=== PATIENT | female | born 1960 | race Caucasian/White ===

== ENCOUNTER 2018-11-27 00:45 | Outpatient (CLI) | payer OTHER ==
[2018-11-27 13:41] LABS: Hemoglobin 13.9 g/dL (12.0-16.0); Mean Corpuscular HGB CONC 34.5 g/dL (32.0-36.0); Mean Corpuscular Hemoglobin 31.5 pg (27.0-31.0); Mean Corpuscular Volume 91.3 fL (78.0-98.0); Platelet Count 264 thou/uL (130-400); RBC Distribution Width 11.6 % (11.5-14.5); White Blood Cell (WBC) Count 8.7 thou/uL (4.8-10.8)
[2018-11-27 14:00] LABS: Anion Gap 15 mmol/L (10-20); BUN (Urea Nitrogen) 17 mg/dL (9.8-20.1); Calc. Creatinine Clearance 0 mL/min (70-130); Calcium 9.2 mg/dL (7.8-10.44); Carbon Dioxide 28 mmol/L (22-29); Chloride 101 mmol/L (98-107); Estimated GFR-MDRD 45; Glucose 127 mg/dL (70-105); Potassium 3.1 mmol/L (3.5-5.1); Sodium 141 mmol/L (136-145)
--- NOTE | 2018-11-29 21:16 | EKG ---
Test Reason : Blood Pressure : / mmHG Vent. Rate : 089 BPM Atrial Rate : 089 BPM P-R Int : 186 ms QRS Dur : 084 ms QT Int : 384 ms P-R-T Axes : 052 007 040 degrees QTc Int : 467 ms Normal sinus rhythm Cannot rule out Anteroseptal infarct , age undetermined Abnormal ECG No previous ECGs available Confirmed by Jitendra BERRIOS ([id number]) on 11/29/2018 9:16:11 PM Referred By: EDUARDO Confirmed By:Jitendra BERRIOS
== END 2018-11-27 00:46 | disposition home or self-care (01) ==
LOC: LABBT 00:45
PROVIDERS: ATTEND Neurological Surgery
DX: Z01.818 Encounter for other preprocedural examination (principal); M54.12 Radiculopathy, cervical region
CPT/HCPCS: 80048; 85027; 93005; 93010

== ENCOUNTER 2018-12-02 05:25 | Day surgery (SDC) | payer OTHER ==
[2018-11-27 11:45] VITALS: BMI 31.0
[2018-12-02] MEDS ORDERED: Thrombin 5000 UNITS/5 ML VIAL ONE (06:35)
[2018-12-02] MEDS ORDERED: Sodium Chloride 0.9% 10 ML ONE (06:35)
[2018-12-02] MEDS ORDERED: Fentanyl 250 MCG/5 ML VIAL ONE (07:03)
[2018-12-02] MEDS ORDERED: HYDROmorphone 2 MG/ML VIAL ONE ×2 (07:34→10:53)
[2018-12-02] MEDS ORDERED: Ketamine 50 MG/ML (10ML VIAL) ONE (07:34)
[2018-12-02] MEDS ORDERED: Midazolam HCl 2 mg/2 ml Vial ONE (07:58)
[2018-12-02] MEDS ORDERED: Morphine 4 MG/ML VIAL SLOW IVP PRN (09:40)
[2018-12-02] MEDS ORDERED: Sodium Chloride 0.9% 1,000 ML IV SCH (09:40)
[2018-12-02] MEDS ORDERED: Mag-Al 1200 mg/1200 mg/30 ML UDCUP PO PRN (09:40)
[2018-12-02] MEDS ORDERED: diphenhydrAMINE 25 MG CAP PO PRN (09:40)
[2018-12-02] MEDS ORDERED: diphenhydrAMINE 50 MG/ML VIAL IVP PRN (09:40)
[2018-12-02] MEDS ORDERED: Milk Of Magnesia 30 ML UDCUP PO PRN (09:40)
[2018-12-02] MEDS ORDERED: Promethazine HCl 12.5 MG SUPP PR PRN (09:40)
[2018-12-02] MEDS ORDERED: traMADol HCl 50 MG TAB PO PRN ×2 (09:40)
[2018-12-02] MEDS ORDERED: Ondansetron PF 4 MG/2 ML Vial IVP PRN (09:40)
[2018-12-02] MEDS ORDERED: tiZANidine HCl 4 MG TAB PO PRN (09:40)
[2018-12-02] MEDS ORDERED: HYDROcodone/Acetaminophen 10/325 mg Tablet PO PRN ×2 (09:40)
[2018-12-02] MEDS ORDERED: Promethazine 25 MG TAB PO PRN (09:40)
[2018-12-02] MEDS ORDERED: Promethazine HCl 25 MG/ML VIAL IM PRN (09:40)
[2018-12-02] MEDS ORDERED: Fentanyl 100 MCG/2 ML VIAL ONE ×3 (09:49→10:36)
[2018-12-02] MEDS ORDERED: Morphine 2 MG/ML SYRINGE SLOW IVP PRN (10:00)
[2018-12-02] MEDS ORDERED: Promethazine HCl 25 MG/ML VIAL IM/IV PRN (10:12)
[2018-12-02] MEDS ORDERED: Non-Formulary Medication 1 EACH PO PRN (10:12)
[2018-12-02] MEDS ORDERED: HYDROmorphone 2 MG/ML VIAL SLOW IVP PRN (10:12)
[2018-12-02] MEDS ORDERED: Ondansetron HCl/PF 4 MG/2 ML Vial IVP PRN (10:12)
[2018-12-02] MEDS ORDERED: Rocuronium Bromide 10 MG/ML (10ML VIAL) ONE (12:08)
[2018-12-02] MEDS ORDERED: Dexamethasone 20 MG/5 ML VIAL ONE (12:08)
[2018-12-02] MEDS ORDERED: Glycopyrrolate 0.2 MG/ML 5 ML SYRINGE ONE (12:08)
[2018-12-02] MEDS ORDERED: Lidocaine 1% PF 5 ML VIAL ONE (12:08)
[2018-12-02] MEDS ORDERED: Ondansetron PF 4 MG/2 ML Vial ONE (12:08)
[2018-12-02] MEDS ORDERED: PROPOFOL 200 MG/20 ML VIAL ONE (12:08)
[2018-12-02] MEDS ORDERED: Phenylephrine HCL 10 MG/ML VIAL ONE (12:08)
[2018-12-02] MEDS ORDERED: diphenhydrAMINE 25 MG CAP ONE (12:13)
[2018-12-02] MEDS ORDERED: HYDROcodone/Acetaminophen 10/325 mg Tablet ONE (12:47)
[2018-12-02] MEDS ORDERED: tiZANidine HCl 4 MG TAB ONE (12:53)
--- NOTE | 2018-12-02 13:18 | OP ---
DATE OF PROCEDURE: 12/02/2018 HEARING SCREEN COORDINATOR: Rneé Pool PA-C PROCEDURES PERFORMED: Anterior cervical diskectomy C5-C6 and C6-C7, interbody arthrodesis, intervertebral biomechanical device, local morselized autograft, demineralized bone matrix, anterior titanium instrumentation C5-C6 and C6-C7. DESCRIPTION OF PROCEDURE: The patient was brought to the operating room and intubated. She was positioned supine with head in modest extension on a gel-filled donut. Incision was made in the right precervical area and dissected medial to the sternocleidomastoid muscle, identified the anterior cervical spinal, and the level was confirmed by x-ray. We debrided the anterior osteophytes, placed distraction across the disk spaces, and completely decompressed the C5-C6 and C6-C7 disks. The bony endplates were then decorticated for the purpose of arthrodesis and appropriately sized intervertebral biomechanical PEEK device was brought into the field and filled with demineralized bone matrix, local morselized autograft, and tapped into place securely at C5-C6 and C6-C7. Next, an anterior plate was brought into the field and secured to C5, C6, and C7 using two 14-mm screws at each level. The wound was then extensively irrigated and MAC hemostasis was secured. The wound was closed in anatomic layers. Job ID: [id number]
== END 2018-12-02 13:50 | disposition home or self-care (01) ==
LOC: SDC 05:25
PROVIDERS: ATTEND Neurological Surgery
PROC: 0RG2070 Fusion of 2 or more Cervical Vertebral Joints with Autologous Tissue Substitute, Anterior Approach, Anterior Column, Open Approach (ICD-10-PCS; principal; 2018-12-02)
PROC: 0RG20A0 Fusion of 2 or more Cervical Vertebral Joints with Interbody Fusion Device, Anterior Approach, Anterior Column, Open Approach (ICD-10-PCS; principal; 2018-12-02)
DX: M47.22 Other spondylosis with radiculopathy, cervical region (principal); I10 Essential (primary) hypertension; K21.9 Gastro-esophageal reflux disease without esophagitis; Z91.041 Radiographic dye allergy status; Z91.040 Latex allergy status; Z91.048 Other nonmedicinal substance allergy status; Z79.1 Long term (current) use of non-steroidal anti-inflammatories (NSAID); Z79.899 Other long term (current) drug therapy
CPT/HCPCS: 76000; C1713; C1776; J0690; J1100; J1170; J2001; J2250; J2370; J2405; J2704; J3010; J3490; Q0163

== ENCOUNTER 2018-12-17 10:34 | Outpatient (CLI) | payer OTHER ==
--- NOTE | 2018-12-17 11:55 | RAD ---
Radiograph cervical spine 4 views: HISTORY: 58-year-old female with cervical radiculopathy COMPARISON: None available FINDINGS: There is mild kyphosis centered at lower C-spine. Anterior metallic plate and screws at C3 5, C6, and C7. Tiny metallic markers for interbody graft at the C5-6 and C6-7 disc spaces. Mild disc space narrowing at C5-6, C6-7, and C7-T1. Minimal anterolisthesis of C4 on C5 due to bilateral facet DJD. N o high-grade prevertebral soft tissue thickening. IMPRESSION: Status post anterior cervical discectomy and fusion at C5-6-7
== END 2018-12-17 10:35 | disposition home or self-care (01) ==
LOC: TBSIIMAG 10:34
PROVIDERS: ATTEND Neurological Surgery
DX: M54.12 Radiculopathy, cervical region (principal); Z98.1 Arthrodesis status
CPT/HCPCS: 72040

== ENCOUNTER 2019-02-20 12:39 | Outpatient (CLI) | payer OTHER ==
--- NOTE | 2019-02-20 13:52 | RAD ---
KUB: INDICATION: History of renal calculi. COMPARISON: None. FINDINGS: There are small punctate stones within both kidneys. One of the largest within the superior pole of the right kidney measures approximately 4 mm. One of the largest in the left kidney is seen within t he superior pole measuring approximately 3.5 mm. No suspicious calculus is seen along the expected c ourse of the renal collecting system. There are surgical clips within the right upper quadrant and t he right lower quadrant. There is levoscoliosis of the lumbar spine. There are suture anchors seen within the region of the pubic bodies. IMPRESSION: Bilateral nephrolithiasis. POS: TPC
== END 2019-02-20 12:40 | disposition home or self-care (01) ==
LOC: RAD 12:39
PROVIDERS: ATTEND Family Medicine
DX: N20.0 Calculus of kidney (principal)
CPT/HCPCS: 36415; 74018; 80048; 83970

== ENCOUNTER 2019-04-07 11:46 | Day surgery (SDC) | payer OTHER ==
[2019-04-04 12:39] VITALS: BMI 32.8
[2019-04-07] MEDS ORDERED: Ketamine 50 MG/ML (10ML VIAL) ONE (14:19)
--- NOTE | 2019-04-07 16:26 | MRI ---
MRI LEFT KNEE: 04/07/2019 PROVIDED CLINICAL HISTORY: Right knee pain. FINDINGS: The anterior cruciate ligament, posterior cruciate ligament, medial collateral ligament and lateral c ollateral ligamentous complex demonstrate an intact MR appearance, as does the extensor mechanism. There is maceration/complex tearing involving the body of the medial meniscus with a small meniscal f lap displaced within the medial meniscotibial recess suspected. The lateral meniscus demonstrates no definite evidence for tear. No focal articular cartilage defect is apparent. There is extensive full-thickness articular cartilag e absence involving the central weight bearing portions of the medial femorotibial joint. There is signal alteration within the medial tibial plateau, reactive to the articular cartilage loss and the meniscal tear. No focal concerning regional marrow or muscular signal abnormality is evident . There is a small knee joint effusion with Cuadra's cyst formation. IMPRESSION: 1. Maceration/complex tearing involving the body of the medial meniscus as described above. 2. Advanced medial femorotibial articular chondrosis. 3. Mild knee joint effusion with Cuadra's cyst. POS: OFF
== END 2019-04-07 15:25 | disposition home or self-care (01) ==
LOC: SDC/OP 11:46
PROVIDERS: ATTEND Orthopaedic Surgery
DX: S83.232A Complex tear of medial meniscus, current injury, left knee, initial encounter (principal); S83.512A Sprain of anterior cruciate ligament of left knee, initial encounter; M71.21 Synovial cyst of popliteal space [Baker], right knee; M17.0 Bilateral primary osteoarthritis of knee; I10 Essential (primary) hypertension; K21.9 Gastro-esophageal reflux disease without esophagitis; F17.200 Nicotine dependence, unspecified, uncomplicated; Z79.1 Long term (current) use of non-steroidal anti-inflammatories (NSAID); Z79.899 Other long term (current) drug therapy; Z91.040 Latex allergy status; Z91.041 Radiographic dye allergy status; Z91.048 Other nonmedicinal substance allergy status

== ENCOUNTER 2021-01-21 10:59 | Day surgery (SDC) | payer OTHER ==
[2021-01-20 12:45] VITALS: BMI 32.7
[2021-01-21] MEDS ORDERED: Midazolam HCl 2 mg/2 ml Vial ONE (13:45)
[2021-01-21] MEDS ORDERED: Fentanyl 100 MCG/2 ML VIAL ONE (13:45)
[2021-01-21] MEDS ORDERED: PROPOFOL 200 MG/20 ML VIAL ONE (14:00)
[2021-01-21] MEDS ORDERED: Lidocaine 1% PF 5 ML VIAL ONE (14:00)
== END 2021-01-21 16:20 | disposition home or self-care (01) ==
LOC: MRI 10:59
PROVIDERS: ATTEND Nurse Practitioner Family
DX: M51.16 Intervertebral disc disorders with radiculopathy, lumbar region (principal); K21.9 Gastro-esophageal reflux disease without esophagitis; I10 Essential (primary) hypertension; D64.9 Anemia, unspecified; F17.200 Nicotine dependence, unspecified, uncomplicated; Z79.899 Other long term (current) drug therapy; Z88.8 Allergy status to other drugs, medicaments and biological substances; Z91.041 Radiographic dye allergy status; Z91.040 Latex allergy status
CPT/HCPCS: 72146; 72148; J2250; J2704; J3010

== ENCOUNTER 2021-11-03 10:07 | Outpatient (CLI) | payer OTHER ==
[2021-11-03 21:26] LABS: SARS-CoV-2 PCR by NAA Not Detected (NotDetected)
== END 2021-11-03 10:08 | disposition home or self-care (01) ==
LOC: LABBT 10:07
PROVIDERS: ATTEND Internal Medicine Gastroenterology
DX: Z20.822 Contact with and (suspected) exposure to COVID-19 (principal)
CPT/HCPCS: U0003; U0005

== ENCOUNTER 2021-11-08 07:01 | Day surgery (SDC) | payer OTHER ==
[2021-11-07 10:12] VITALS: BMI 32.8
[2021-11-08] MEDS ORDERED: Midazolam HCl 2 mg/2 ml Vial ONE (08:00)
[2021-11-08] MEDS ORDERED: Ketamine 50 MG/ML (10ML VIAL) ONE (08:01)
[2021-11-08] MEDS ORDERED: PROPOFOL 200 MG/20 ML VIAL ONE (08:57)
== END 2021-11-08 11:57 | disposition home or self-care (01) ==
LOC: SDC 07:01
PROVIDERS: ATTEND Internal Medicine Gastroenterology
PROC: 0DB78ZX Excision of Stomach, Pylorus, Via Natural or Artificial Opening Endoscopic, Diagnostic (ICD-10-PCS; principal; 2021-11-08)
PROC: 0D737ZZ Dilation of Lower Esophagus, Via Natural or Artificial Opening (ICD-10-PCS; principal; 2021-11-08)
PROC: 0D727ZZ Dilation of Middle Esophagus, Via Natural or Artificial Opening (ICD-10-PCS; principal; 2021-11-08)
PROC: 0D717ZZ Dilation of Upper Esophagus, Via Natural or Artificial Opening (ICD-10-PCS; principal; 2021-11-08)
DX: K31.89 Other diseases of stomach and duodenum (principal); R13.19 Other dysphagia; K21.9 Gastro-esophageal reflux disease without esophagitis; M19.90 Unspecified osteoarthritis, unspecified site; J45.909 Unspecified asthma, uncomplicated; I48.91 Unspecified atrial fibrillation; N18.9 Chronic kidney disease, unspecified; E78.00 Pure hypercholesterolemia, unspecified; E66.3 Overweight; Z68.32 Body mass index [BMI] 32.0-32.9, adult; Z85.42 Personal history of malignant neoplasm of other parts of uterus; Z85.43 Personal history of malignant neoplasm of ovary; Z85.3 Personal history of malignant neoplasm of breast; Z85.6 Personal history of leukemia; Z85.71 Personal history of Hodgkin lymphoma; Z85.850 Personal history of malignant neoplasm of thyroid; Z79.890 Hormone replacement therapy; Z79.899 Other long term (current) drug therapy; Z88.3 Allergy status to other anti-infective agents; Z91.040 Latex allergy status; Z91.041 Radiographic dye allergy status; Z91.013 Allergy to seafood
CPT/HCPCS: 88305; J2250; J2704